=== PATIENT | female | born 1965 | race Caucasian/White ===

== ENCOUNTER 2016-10-06 09:31 | Day surgery (SDC) | payer MEDICAID ==
[2016-10-05 08:47] VITALS: BMI 36.6
[~2016-10-06 09:31] MED LIST: LACTATED RINGERS 1,000 ML IV SCH
[2016-10-06 10:52] VITALS: RESP 16; TEMP 98.2
[2016-10-06] MEDS ORDERED: LIDOCAINE 1% 20 ML VIAL (10MG/ML) FOR IV START INTRADERMA ONE (11:08)
[2016-10-06] MEDS ORDERED: PROPOFOL 10 MG/ML 20 ML VIAL IV ONE (11:31)
--- NOTE | 2016-10-06 11:45 | P.PCN ---
Date of Procedure: 10/06/16 Procedure(s) Performed: BRIEF HISTORY: Patient is a 50-year-old pleasant white female scheduled for an elective colonoscopy as a part of screening for colorectal neoplasia. PROCEDURE PERFORMED: Colonoscopy. PREOPERATIVE DIAGNOSIS: Screening for colon cancer. IV sedation per Anesthesia. PROCEDURE: After informed consent was obtained, the patient, was brought into the endoscopy unit. IV sedation was administered by Anesthesia under continuous monitoring. Digital rectal examination was normal. Initially the Olympus CF- 160 flexible video colonoscope was then inserted in the rectum, gradually advanced into the cecum without any difficulty. Careful examination was performed as the scope was gradually being withdrawn. Ileocecal valve and the appendiceal orifice were visualized and appeared normal. Prep was excellent. Mucosa of the cecum, ascending colon, transverse colon, descending colon, sigmoid colon, and rectum appeared normal. Retroflexion was performed in the rectum and no lesions were seen. The patient tolerated the procedure well. IMPRESSION: Normal-appearing colon from rectum to cecum with no evidence of colorectal neoplasia. RECOMMENDATIONS: Findings of this examination were discussed with the patient as well as her family. She was advised to have a repeat screening colonoscopy in 10 years.
[2016-10-06 12:19] VITALS: BP 136/85; PULSE 76
== END 2016-10-06 12:31 | disposition home or self-care (01) ==
LOC: ORWHC2ENDO 09:31
PROVIDERS: ATTEND Internal Medicine Gastroenterology
DX: Z12.11 Encounter for screening for malignant neoplasm of colon (principal); K21.9 Gastro-esophageal reflux disease without esophagitis; Z79.899 Other long term (current) drug therapy
CPT/HCPCS: 81025; J2704; G0121

== ENCOUNTER → 2016-10-12 | Outpatient (CLI) | payer MEDICAID ==
--- NOTE | 2016-10-12 13:49 | ECHOS ---
DATE OF SERVICE: 10/12/2016 AGE: 50Y SEX: F HT: 62" WT: 220 lbs. Protocol Cristopher: X Others: Stress Echo Stage: 3 Dur. of Exercise: 7:00 *Heart Rate Blood Pressure *Rest: 92 Rest: 130/79 * *Max. Achieved: 153 Maximum BP: 196/57 85% PMHR: 145 100% PMHR: 170 *METS: 8.1 INDICATIONS: Abnormal EKG. MEDICATIONS: Prilosec. Baseline EKG revealed a normal sinus rhythm without significant ST-T changes. Patient walked on standard Cristopher protocol for 7 minutes, achieved a maximum heart rate of 153 beats per minute, which is was well above 85% of predicted maximum. She developed some fatigue and shortness of breath, but did not have any angina or arrhythmia. EKG did not reveal any ST segment changes to indicate ischemia. By EKG criteria, this is a negative stress test with fair exercise capacity. Baseline echo images revealed normal wall motion and wall thickening of all segments. At peak exercise,. there was good augmentation of left ventricular wall motion and wall thickening of all segments suggesting that there is no evidence of any stress-induced ischemia on this study. FINAL IMPRESSION: 1. Fair exercise capacity with a negative stress test by EKG criteria. 2. Negative stress echocardiogram.
== END | disposition home or self-care (01) ==
LOC: RADNMMAIN 08:57
PROVIDERS: ATTEND Internal Medicine Geriatric Medicine
DX: R94.31 Abnormal electrocardiogram [ECG] [EKG] (principal)
CPT/HCPCS: 93017; 93350

== ENCOUNTER → 2016-11-04 | Outpatient (CLI) | payer MEDICAID ==
--- NOTE | 2016-11-09 08:35 | MM ---
Reason for exam: screening (asymptomatic). Last mammogram was performed 6 years and 1 month ago. History: Family history of breast cancer in paternal grandmother. Physical Findings: A clinical breast exam by your physician is recommended on an annual basis and results should be correlated with mammographic findings. MG 3D Screening Mammo W/Cad Bilateral CC and MLO view(s) were taken. Prior study comparison: October 12, 2010, bilateral digital screening mammo w/CAD. There are scattered fibroglandular densities. No significant changes when compared with prior studies. ASSESSMENT: Negative, BI-RAD 1 RECOMMENDATION: Routine screening mammogram of both breasts in 1 year.
== END | disposition home or self-care (01) ==
LOC: RADMAMWWP 09:23
PROVIDERS: ATTEND Internal Medicine Geriatric Medicine
DX: Z12.31 Encounter for screening mammogram for malignant neoplasm of breast (principal); E78.5 Hyperlipidemia, unspecified; K21.9 Gastro-esophageal reflux disease without esophagitis; M19.90 Unspecified osteoarthritis, unspecified site; R73.9 Hyperglycemia, unspecified; Z79.1 Long term (current) use of non-steroidal anti-inflammatories (NSAID)
CPT/HCPCS: 77063; G0202

== ENCOUNTER 2018-02-23 05:56 | Observation (INO) | payer MEDICAID ==
[2018-02-23 06:32] LABS: Basophils % (A) 0 %; Eosinophils # (A) 0.2 k/uL (0-0.7); Eosinophils % (A) 2 %; HGB 12.1 gm/dL (11.4-16.0); Lymphocytes # (A) 1.4 k/uL (1.0-4.8); Lymphocytes % (A) 19 %; MCH 26.4 pg (25.0-35.0); MCHC 31.8 g/dL (31.0-37.0); MCV 83.2 fL (80.0-100.0); Mean Platelet Volume 6.6; Monocytes # (A) 0.3 k/uL (0-1.0); Monocytes % (A) 4 %; Neutrophils # (A) 5.3 k/uL (1.3-7.7); Neutrophils % (A) 73 %; Platelet Count 299 k/uL (150-450); RBC 4.56 m/uL (3.80-5.40); RDW 13.9 % (11.5-15.5); WBC 7.3 k/uL (3.8-10.6)
[2018-02-23 06:37] LABS: Partial Thromboplastin Time 24.7 sec (22.0-30.0)
[2018-02-23 06:38] LABS: ALT 36 U/L (9-52); AST 23 U/L (14-36); Albumin 3.9 g/dL (3.5-5.0); Alkaline Phosphatase 57 U/L (38-126); Anion Gap 8 mmol/L; Blood Urea Nitrogen 12 mg/dL (7-17); Calcium 9.5 mg/dL (8.4-10.2); Carbon Dioxide 25 mmol/L (22-30); Chloride 104 mmol/L (98-107); Glucose 96 mg/dL (74-99); Magnesium 1.8 mg/dL (1.6-2.3); Potassium 4.6 mmol/L (3.5-5.1); Sodium 137 mmol/L (137-145); Total Bilirubin 0.3 mg/dL (0.2-1.3); Total Protein 6.7 g/dL (6.3-8.2)
--- NOTE | 2018-02-23 06:39 | ED ---
Chest Pain HPI - General Chief Complaint: Chest Pain Stated Complaint: chest pain Time Seen by Provider: 02/23/18 06:37 Source: patient Mode of arrival: ambulatory Limitations: no limitations - History of Present Illness MD Complaint: chest pain -: hour(s) Onset: during rest Pain Location: substernal Pain Radiation: back Severity: severe Quality: aching Consistency: constant Improves With: nothing Worsens With: nothing Anginal Symptoms: nausea Treatments Prior to Arrival: none - Related Data Home Medications Medication Instructions Recorded Confirmed Multivitamins, Thera [Multivitamin 1 tab PO DAILY 10/05/16 02/23/18 (formulary)] Omeprazole [PriLOSEC] 20 mg PO AC-BRKFST 10/05/16 02/23/18 Previous Rx's Medication Instructions Recorded Cyclobenzaprine [Flexeril] 10 mg PO TID #14 tab 02/20/18 Ketorolac [Toradol] 10 mg PO Q6HR #20 tab 02/20/18 Allergies Allergy/AdvReac Type Severity Reaction Status Date / Time No Known Allergies Allergy Verified 02/23/18 07:17 Review of Systems ROS Statement: Those systems with pertinent positive or pertinent negative responses have been documented in the HPI. ROS Other: All systems not noted in ROS Statement are negative. Constitutional: Denies: fever, chills, weakness Respiratory: Denies: cough, dyspnea Cardiovascular: Reports: chest pain. Denies: palpitations, edema, syncope Gastrointestinal: Reports: nausea. Denies: abdominal pain, vomiting Genitourinary: Denies: dysuria, hematuria Musculoskeletal: Denies: back pain Skin: Denies: rash Neurological: Denies: headache, weakness, numbness EKG Findings - EKG Results: EKG: interpreted by DOMINGO WNL, sinus rhythm (Rate 84 bpm), normal axis, normal QRS, normal ST/T, no acute changes - NC, Pacemaker, Normal: Normal tracing: normal tracing Past Medical History Past Medical History: Chest Pain / Angina, GERD/Reflux History of Any Multi-Drug Resistant Organisms: None Reported Past Surgical History: No Surgical Hx Reported Past Psychological History: No Psychological Hx Reported Smoking Status: Never smoker Past Alcohol Use History: Occasional Past Drug Use History: None Reported - Past Family History Father Family Medical History: Cancer Additional Family Medical History / Comment(s): Father had prostrate cancer that metastasized to the bone. He from this at the age of 71yrs. Mother Additional Family Medical History / Comment(s): Mother has a pacemaker. General Exam Limitations: no limitations General appearance: alert, in no apparent distress Head exam: Present: atraumatic, normocephalic Eye exam: Present: normal appearance. Absent: scleral icterus, conjunctival injection ENT exam: Present: normal oropharynx Neck exam: Present: normal inspection, full ROM Respiratory exam: Present: normal lung sounds bilaterally. Absent: respiratory distress, wheezes, rales, rhonchi, stridor, chest wall tenderness Cardiovascular Exam: Present: regular rate, normal rhythm, normal heart sounds. Absent: systolic murmur, diastolic murmur, rubs, gallop GI/Abdominal exam: Present: soft. Absent: distended, tenderness, guarding, rebound, rigid Extremities exam: Present: normal inspection, normal capillary refill. Absent: pedal edema, calf tenderness Back exam: Present: normal inspection. Absent: CVA tenderness (R), CVA tenderness (L) Neurological exam: Present: alert Skin exam: Present: warm, dry, intact, normal color. Absent: rash Course Vital Signs 02/23/18 02/23/18 02/23/18 05:59 07:05 08:35 Temperature 98.4 F 98.2 F Pulse Rate 90 80 90 Pulse Rate [ Right Pulse Oximetery] Respiratory 18 20 18 Rate Blood Pressure 158/88 138/83 164/85 Blood Pressure [Right Arm] O2 Sat by Pulse 99 97 98 Oximetry 02/23/18 08:50 Temperature 98.7 F Pulse Rate Pulse Rate [ 95 Right Pulse Oximetery] Respiratory 18 Rate Blood Pressure Blood Pressure 145/86 [Right Arm] O2 Sat by Pulse 98 Oximetry Chest Pain MDM - MDM This patient is a 52-year-old woman who presents to be evaluated for substernal chest pain. The pain does have a few typical features but on the other any patient does have normal ECG. This is her second visit in 3 days. The initial workup is negative, but will admit to have serial cardiac enzymes, telemetry, and cardiology evaluation. Disposition Clinical Impression: Chest pain Disposition: ADMITTED IP TO THIS HOSP Condition: Good Is patient prescribed a controlled substance at d/c from ED?: No
[2018-02-23 06:48] LABS: Creatine Kinase 82 U/L (30-135)
[2018-02-23] MEDS ORDERED: ONDANSETRON 4 MG/2 ML VIAL IVP STA (06:48)
[2018-02-23] MEDS ORDERED: MORPHINE SULFATE 4 MG/ML SYRINGE IV STA (06:48)
--- NOTE | 2018-02-23 06:54 | XR ---
EXAMINATION TYPE: XR chest 1V portable DATE OF EXAM: 02/23/2018 COMPARISON: Chest x-ray from 3 days ago HISTORY: Sharp shooting pain in chest for 6 hours. TECHNIQUE: Single AP portable frontal upright view of the chest is obtained. FINDINGS: Overlying EKG leads are seen. There is no focal air space opacity, pleural effusion, or pn eumothorax seen. The cardiac silhouette size is stable and within normal limits with slightly ectati c thoracic aorta redemonstrated. The osseous structures are intact. IMPRESSION: No acute cardiopulmonary process. No significant change from prior.
[2018-02-23 07:01] LABS: Creatine Kinase MB 0.8 ng/mL (0.0-2.4); Troponin I <0.012 ng/mL (0.000-0.034)
[2018-02-23] MEDS ORDERED: NITROGLYCERIN SL TABS 0.4 MG TAB SUBLINGUAL PRN (07:28)
[2018-02-23] MEDS ORDERED: PANTOPRAZOLE 40 MG TABLET PO SCH (07:30)
[2018-02-23] MEDS ORDERED: SODIUM CHLORIDE 0.9% 1,000 ML IV SCH ×2 (07:30→14:00)
[2018-02-23 08:38] VITALS: RESP 18
[2018-02-23 08:59] VITALS: TEMP 98.7
[2018-02-23 11:40] VITALS: BP 116/68; PULSE 83
[2018-02-23] MEDS ORDERED: MULTIVITAMINS, THERA 1 EACH TAB PO SCH (12:00)
--- NOTE | 2018-02-23 12:14 | P.CRDCN ---
History of Present Illness History of present illness: This is a pleasant 52-year-old female past medical history significant for gastroesophageal reflux disease. She denies history of coronary artery disease, hypertension or diabetes mellitus. She states her total cholesterol is usually controlled but she does have elevated triglycerides. We have been asked to see her in consultation for chest pain. She describes a feeling like a band around her upper body squeezing. The pain starts in the mid- sternal region and radiates sharply through to the back. No specific aggravating or alleviating factors noted. She feels nauseated and diaphoretic when the pain is at its peak. She denies shortness of breath, dizziness, vomiting, palpitations or cough. She has felt this pain previously in the past and went to ED for evaluation. They did an EKG and gave her toradol which seemed to subside the pain. She was given a prescription for toradol an flexeril. The pain returned last night and neither toradol or flexeril worked to relieve the pain this time. She continues to have mild discomfort at the time of my exam. EKG sinus mechanism with no acute ST or T-wave abnormalities. Chest xray negative for an acute cardiopulmonary process. Laboratory data reviewed, cardiac enzymes negative x1. Current daily medications include prilosec. Most recent stress test performed 10/2016 negative for stress induced cardiac ischemia. Review of Systems At the time of my exam: CONSTITUTIONAL: Denies fever. Denies chills. EYES: Denies blurred vision. Denies vision changes. Denies eye pain. EARS, NOSE, MOUTH & THROAT: Denies headache. Denies sore throat. Denies ear pain. CARDIOVASCULAR: Complains of chest pain. Denies shortness of breath. Denies orthopnea. Denies PND. Denies palpitations. RESPIRATORY: Denies cough. GASTROINTESTINAL: Denies abdominal pain. Denies diarrhea. Denies constipation. Denies nausea. Denies vomiting. MUSCULOSKELETAL: Denies myalgias. INTEGUMENTARY: Denies pruitis. Denies rash. NEUROLOGIC: Denies numbness. Denies tingling. Denies weakness. PSYCHIATRIC: Denies anxiety. Denies depression. ENDOCRINE: Denies fatigue. Denies weight change. Denies polydipsia. Denies polyurina. GENITOURINARY: Denies burning, hematuria or urgency with micturation. HEMATOLOGIC: Denies history of anemia. Denies bleeding. Past Medical History Past Medical History: Chest Pain / Angina, GERD/Reflux Additional Past Medical History / Comment(s): DDD, occasional low back pain. History of Any Multi-Drug Resistant Organisms: None Reported Past Surgical History: No Surgical Hx Reported Additional Past Surgical History / Comment(s): 2017 colonoscopy Additional Past Anesthesia/Blood Transfusion Reaction / Comment(s): Pt has never received general/spinal anesthesia. Pt has never received blood. Smoking Status: Never smoker - Past Family History Father Family Medical History: Cancer Additional Family Medical History / Comment(s): Father had prostrate cancer that metastasized to the bone. He from this at the age of 71yrs. Mother Additional Family Medical History / Comment(s): Mother has a pacemaker. Medications and Allergies Home Medications Medication Instructions Recorded Confirmed Type Multivitamins, Thera [Multivitamin 1 tab PO DAILY 10/05/16 02/23/18 History (formulary)] Omeprazole [PriLOSEC] 20 mg PO AC-BRKFST 10/05/16 02/23/18 History Cyclobenzaprine [Flexeril] 10 mg PO TID #14 tab 02/20/18 02/23/18 Rx Ketorolac [Toradol] 10 mg PO Q6HR #20 tab 02/20/18 02/23/18 Rx Allergies Allergy/AdvReac Type Severity Reaction Status Date / Time No Known Allergies Allergy Verified 02/23/18 07:17 Physical Exam Vitals: Vital Signs Temp Pulse Pulse Resp BP BP Pulse Ox 02/23/18 08:50 98.7 F 95 18 145/86 98 02/23/18 08:35 98.2 F 90 18 164/85 98 02/23/18 07:05 80 20 138/83 97 02/23/18 05:59 98.4 F 90 18 158/88 99 Intake and Output 02/22/18 02/23/18 02/23/18 22:59 06:59 14:59 Other: Weight 104.326 kg Blood pressure 116/68 heart rate 83 afebrile maintaining oxygen saturation on room air GENERAL: This is a 52-year-old female in no apparent distress at the time of my examination. Obese. HEENT: Head is atraumatic, normocephalic. Pupils are equal, round. Sclerae anicteric. Conjunctivae are clear. Mucous membranes of the mouth are moist. Neck is supple. There is no jugular venous distention. No carotid bruit is heard. LUNGS: Clear to auscultation no wheezes, rales or rhonchi. No chest wall tenderness is noted on palpation or with deep breathing. HEART: Regular rate and rhythm with faint systolic murmur at the base, no rubs or gallops. S1 and S2 heard. ABDOMEN: Soft, nontender. Bowel sounds are heard. No organomegaly noted. EXTREMITIES: No evidence of peripheral edema and no calf tenderness noted. VASCULAR: Radial and dorsalis pedis pulses palpated, no evidence of clubbing. NEUROLOGIC: Patient is awake, alert and oriented x3. Results 02/23/18 06:17 02/23/18 06:17 Cardiac Enzymes 02/23/18 02/23/18 Range/Units 06:17 06:17 AST 23 (14-36) U/L CK-MB (CK-2) 0.8 (0.0-2.4) ng/mL Troponin I <0.012 (0.000-0.034) ng/mL Coagulation 02/23/18 Range/Units 06:17 PT 10.0 (9.0-12.0) sec APTT 24.7 (22.0-30.0) sec CBC 02/23/18 Range/Units 06:17 WBC 7.3 (3.8-10.6) k/uL RBC 4.56 (3.80-5.40) m/uL Hgb 12.1 (11.4-16.0) gm/dL Hct 38.0 (34.0-46.0) % Plt Count 299 (150-450) k/uL Comprehensive Metabolic Panel 02/23/18 Range/Units 06:17 Sodium 137 (137-145) mmol/L Potassium 4.6 (3.5-5.1) mmol/L Chloride 104 (98-107) mmol/L Carbon Dioxide 25 (22-30) mmol/L BUN 12 (7-17) mg/dL Creatinine 0.73 (0.52-1.04) mg/dL Glucose 96 (74-99) mg/dL Calcium 9.5 (8.4-10.2) mg/dL AST 23 (14-36) U/L ALT 36 (9-52) U/L Alkaline Phosphatase 57 (38-126) U/L Total Protein 6.7 (6.3-8.2) g/dL Albumin 3.9 (3.5-5.0) g/dL Current Medications Generic Name Dose Route Start Last Admin Trade Name Freq PRN Reason Stop Dose Admin Aspirin 325 mg 02/24/18 09:00 Aspirin PO DAILY [facility] Sodium Chloride 1,000 mls @ 20 mls/hr 02/23/18 07:30 Saline 0.9% IV .Q24H [facility] Multivitamins 1 each 02/23/18 12:00 Theragran PO DAILY@1200 GRABIEL Nitroglycerin 0.4 mg 02/23/18 07:28 Nitrostat SUBLINGUAL Q5M PRN Chest Pain Pantoprazole Sodium 40 mg 02/23/18 07:30 Protonix PO AC-BRKFST GRABIEL Intake and Output 02/22/18 02/23/18 02/23/18 22:59 06:59 14:59 Other: Weight 104.326 kg 02/23/18 06:17 02/23/18 06:17 Assessment and Plan Assessment: ASSESSMENT Chest pain, atypical. Gastroesophageal reflux disease Obestiy, BMI 42.1 PLAN Obtain troponin STAT, if negative will proceed with stress echocardiogram to assess for stress induced cardiac ischemia. Obtain ultrasound of the gallbladder. Obtain 2D echocardiogram and doppler study to assess cardiac structure and function. If normal stress test, she is stable from a cardiac perspective. Lifestyle modifications recommended. Thank you kindly for this consultation. Nurse Practitioner note has been reviewed, I agree with a documented findings and plan of care. Patient was seen and examined.
--- NOTE | 2018-02-23 12:30 | US ---
EXAMINATION TYPE: US gallbladder DATE OF EXAM: 02/23/2018 COMPARISON: NONE CLINICAL HISTORY: epigastric pain. EXAM MEASUREMENTS: Liver Length: 16.7 cm Gallbladder Wall: 0.5 cm CBD: not positively identified, possibly obscured by stones Right Kidney: 11.3 x 3.8 x 4.4 cm Large body habitus Pancreas: wnl Liver: Increased attenuation, decreased visualization of vessels suggestive of fatty infiltrate, upp er limits of normal in size Gallbladder: multiple stones, there appears to be a stone in the neck of the gallbladder, thickened wall Evidence for sonographic Mansfield's sign: No CBD: not positively identified, possibly obscured by stones Right Kidney: wnl and cortical measured differentiation is maintained. There is no ascites. IMPRESSION: Cholelithiasis, correlate for possible cholecystitis. Probable hepatic steatosis.
[2018-02-23] MEDS ORDERED: ONDANSETRON 4 MG/2 ML VIAL IVP PRN (13:52)
--- NOTE | 2018-02-23 13:59 | P.HPIM ---
History of Present Illness H&P Date: 02/23/18 Chief Complaint: Epigastric This is a 52-year-old female patient of Dr. Pandya with past medical history of gastroesophageal reflux disease, degenerative disc disease and chronic low back pain. 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 She was given Toradol without any improvement. Last night while she was sleeping she had pain that woke her up. She states it was in the center of her chest under her ribs and goes around to the back. She states she had sweats and nausea with it. She denies any shortness of breath, syncope episode, palpitations. She denies any recent shortness of breath with activity. She does have history of GERD and takes Prilosec every morning. She denies any burping or reflux. She states she has never had endoscopy done before she denies any blood or tarry stools. She denies any weight loss. She has had some recent weight gain. She states the pain went around to her back bilaterally and also into the flank areas when it was significantly bad. She was given morphine in the emergency center and the pain is now a 2. Zofran improved nausea. She does give history of having a stress test done about one and half years ago she had abnormal EKG but states this was normal. The patient was afebrile, blood pressure was slightly high, troponins of been negative on 2 draws. Electrolytes, kidney function and liver function tests all within normal limits, d-dimer 0.35. CBC is normal hemoglobin and white count. Chest x-ray showed no acute cardio pulmonary process. Patient was pleasant observation unit and cardiology consult requested. She underwent ultrasound that revealed cholelithiasis, correlate for possible cholecystitis. Probable hepatic steatosis. Patient underwent stress test that was negative. Review of Systems All systems: negative Constitutional: Reports sweats, Reports weight gain, Denies anorexia, Denies chills, Denies fatigue, Denies fever, Denies lethargy, Denies malaise, Denies poor appetite, Denies weakness, Denies weight loss Eyes: denies blurred vision, denies pain Ears, nose, mouth and throat: Denies headache, Denies sore throat, Denies vertigo Cardiovascular: Reports chest pain, Denies decreased exercise tolerance, Denies dyspnea on exertion, Denies edema, Denies leg edema, Denies lightheadedness, Denies palpitations, Denies shortness of breath, Denies syncope Respiratory: Denies cough, Denies cough with sputum, Denies dyspnea, Denies excessive sputum, Denies hemoptysis, Denies home oxygen, Denies wheezing Gastrointestinal: Reports nausea, Denies abdominal pain, Denies diarrhea, Denies heartburn, Denies loss of appetite, Denies melena, Denies vomiting Genitourinary: Denies dysuria, Denies hematuria Musculoskeletal: Denies myalgias Integumentary: Denies pruritus, Denies rash Neurological: Denies numbness, Denies weakness Psychiatric: Denies anxiety, Denies depression Endocrine: Denies fatigue, Denies weight change Past Medical History Past Medical History: Chest Pain / Angina, GERD/Reflux Additional Past Medical History / Comment(s): DDD, occasional low back pain. History of Any Multi-Drug Resistant Organisms: None Reported Past Surgical History: No Surgical Hx Reported Additional Past Surgical History / Comment(s): 2017 colonoscopy Additional Past Anesthesia/Blood Transfusion Reaction / Comment(s): Pt has never received general/spinal anesthesia. Pt has never received blood. Past Psychological History: No Psychological Hx Reported Smoking Status: Never smoker Past Alcohol Use History: Occasional Additional Past Alcohol Use History / Comment(s): Patient lives at home with her and adult daughter. 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 She is independent. She has been a lifelong nonsmoker, no illicit drug use. Past Drug Use History: None Reported - Past Family History Father Family Medical History: Cancer Additional Family Medical History / Comment(s): Father had prostrate cancer that metastasized to the bone. He from this at the age of 71yrs. Mother Additional Family Medical History / Comment(s): Mother has arrhythmia and may need a pacemaker. Brother(s) Additional Family Medical History / Comment(s): Patient has 1 brother with no major medical problems. No coronary artery disease or diabetes. Patient has 2 children ages 20 and 17 with no major medical problems. Medications and Allergies Home Medications Medication Instructions Recorded Confirmed Type Multivitamins, Thera [Multivitamin 1 tab PO DAILY 10/05/16 02/23/18 History (formulary)] Omeprazole [PriLOSEC] 20 mg PO AC-BRKFST 10/05/16 02/23/18 History Cyclobenzaprine [Flexeril] 10 mg PO TID #14 tab 02/20/18 02/23/18 Rx Ketorolac [Toradol] 10 mg PO Q6HR #20 tab 02/20/18 02/23/18 Rx Allergies Allergy/AdvReac Type Severity Reaction Status Date / Time No Known Allergies Allergy Verified 02/23/18 07:17 Physical Exam Vitals: Vital Signs Temp Pulse Pulse Resp BP BP Pulse Ox 02/23/18 09:17 98 02/23/18 09:13 90 02/23/18 08:50 98.7 F 95 18 145/86 98 02/23/18 08:35 98.2 F 90 18 164/85 98 02/23/18 07:05 80 20 138/83 97 02/23/18 05:59 98.4 F 90 18 158/88 99 Intake and Output 02/22/18 02/23/18 02/23/18 22:59 06:59 14:59 Other: Voiding Method Toilet Weight 104.326 kg Gen: This is a 52-year-old female patient. She is on bed and appears to be comfortable and in no acute distress. HEENT: Head is atraumatic, normocephalic. Pupils equal, round. Sclerae is anicteric. NECK: Supple. No JVD. No lymphadenopathy. No thyromegaly. LUNGS: Clear to auscultation. No wheezes or rhonchi. No intercostal retractions. HEART: Regular rate and rhythm. No murmur. ABDOMEN: Soft. Bowel sounds are present. No masses. Mild tenderness to the epigastric area. EXTREMITIES: No pedal edema. No calf tenderness. Dorsalis pedis +2 bilaterally. NEUROLOGICAL: Patient is awake, alert and oriented x3. Cranial nerves 2 through 12 are grossly intact. Results CBC & Chem 7: 02/23/18 06:17 02/23/18 06:17 Thrombosis Risk Factor Assmnt - DVT/VTE Prophylaxis DVT/VTE Prophylaxis: Pharmacologic Prophylaxis ordered - Choose All That Apply Any of the Below Risk Factors Present?: Yes Each Factor Represents 1 point: Age 41-60 years, Obesity (BMI >25) Other Risk Factors: No Other congenital or acquired thrombophilia - If yes, enter type in comment: No Thrombosis Risk Factor Assessment Total Risk Factor Score: 2 Thrombosis Risk Factor Assessment Level: Low Risk Assessment and Plan Plan: 1. Chest pain secondary to cholecystitis. Patient started on Zosyn, consult with Dr. Cobian, nothing by mouth status. Continue morphine as needed for pain and Zofran for nausea, IV fluids at 100 mL per hour. 2. History of GERD. Continue Protonix 40 mg with breakfast daily 3. DVT prophylaxis. SCDs and ZHOU hose. 4. Pulmonary prophylaxis. Incentive spirometry. Patient will be admitted to the hospital for a minimum of 2 night stay. Discharge plan: Return home Impression and plan of care have been directed as dictated by the signing physician. Latosha Oden nurse practitioner acting as scribe for signing physician.
[2018-02-23] MEDS ORDERED: PIPERACILLIN-TAZOBACTAM 3.375 GM in DEXTROSE/WATER 1 50ML.BAG IVPB SCH (15:00)
--- NOTE | 2018-02-23 15:18 | P.GSCN ---
History of Present Illness Consult date: 02/23/18 History of present illness: 52-year-old female presented to the emergency department with complained of chest pain and upper epigastric pain. This started in the middle of the night and brought her to the emergency department early in the morning. She states that her dinner the night before was a bolus frosted many weeks. She states that she has had attacks like this in the past about 4 times. She states that these episodes were very spread out. She denies any nausea or vomiting. She denies any loss in appetite. She states that after the episode of pain, that it has resolved and currently there is no pain. She denies any change in bowel function. She has had a cardiology workup for chest pain as well. Review of Systems All systems: negative Past Medical History Past Medical History: Chest Pain / Angina, GERD/Reflux Additional Past Medical History / Comment(s): DDD, occasional low back pain. History of Any Multi-Drug Resistant Organisms: None Reported Past Surgical History: No Surgical Hx Reported Additional Past Surgical History / Comment(s): 2017 colonoscopy Additional Past Anesthesia/Blood Transfusion Reaction / Comm: Pt has never received general/spinal anesthesia. Pt has never received blood. Past Psychological History: No Psychological Hx Reported Smoking Status: Never smoker Past Alcohol Use History: Occasional Additional Past Alcohol Use History / Comment(s): Patient lives at home with her and adult daughter. 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 She is independent. She has been a lifelong nonsmoker, no illicit drug use. Past Drug Use History: None Reported - Past Family History Father Family Medical History: Cancer Additional Family Medical History / Comment(s): Father had prostrate cancer that metastasized to the bone. He from this at the age of 71yrs. Mother Additional Family Medical History / Comment(s): Mother has arrhythmia and may need a pacemaker. Brother(s) Additional Family Medical History / Comment(s): Patient has 1 brother with no major medical problems. No coronary artery disease or diabetes. Patient has 2 children ages 20 and 17 with no major medical problems. Medications and Allergies Home Medications Medication Instructions Recorded Confirmed Type Multivitamins, Thera [Multivitamin 1 tab PO DAILY 10/05/16 02/23/18 History (formulary)] Omeprazole [PriLOSEC] 20 mg PO AC-BRKFST 10/05/16 02/23/18 History Cyclobenzaprine [Flexeril] 10 mg PO TID #14 tab 02/20/18 02/23/18 Rx Ketorolac [Toradol] 10 mg PO Q6HR #20 tab 02/20/18 02/23/18 Rx Allergies Allergy/AdvReac Type Severity Reaction Status Date / Time No Known Allergies Allergy Verified 02/23/18 07:17 Surgical - Exam Osteopathic Statement: *. No significant issues noted on an osteopathic structural exam other than those noted in the History and Physical/Consult. Vital Signs Temp Pulse Resp BP Pulse Ox 98.4 F 90 18 158/88 99 02/23/18 05:59 02/23/18 05:59 02/23/18 05:59 02/23/18 05:59 02/23/18 05:59 - General well nourished, no distress - Eyes normal ocular movement - Respiratory No difficulty with respiration - Abdomen Soft, nontender, nondistended, no rebound, no guarding - Neurologic normal coordination, normal sensation - Psychiatric oriented to time, oriented to person, oriented to place Results - Labs 02/23/18 06:17 02/23/18 06:17 Diabetes panel 02/23/18 Range/Units 06:17 Sodium 137 (137-145) mmol/L Potassium 4.6 (3.5-5.1) mmol/L Chloride 104 (98-107) mmol/L Carbon Dioxide 25 (22-30) mmol/L BUN 12 (7-17) mg/dL Creatinine 0.73 (0.52-1.04) mg/dL Glucose 96 (74-99) mg/dL Calcium 9.5 (8.4-10.2) mg/dL AST 23 (14-36) U/L ALT 36 (9-52) U/L Alkaline Phosphatase 57 (38-126) U/L Total Protein 6.7 (6.3-8.2) g/dL Albumin 3.9 (3.5-5.0) g/dL Calcium panel 02/23/18 Range/Units 06:17 Calcium 9.5 (8.4-10.2) mg/dL Albumin 3.9 (3.5-5.0) g/dL Pituitary panel 02/23/18 Range/Units 06:17 Sodium 137 (137-145) mmol/L Potassium 4.6 (3.5-5.1) mmol/L Chloride 104 (98-107) mmol/L Carbon Dioxide 25 (22-30) mmol/L BUN 12 (7-17) mg/dL Creatinine 0.73 (0.52-1.04) mg/dL Glucose 96 (74-99) mg/dL Calcium 9.5 (8.4-10.2) mg/dL Adrenal panel 02/23/18 Range/Units 06:17 Sodium 137 (137-145) mmol/L Potassium 4.6 (3.5-5.1) mmol/L Chloride 104 (98-107) mmol/L Carbon Dioxide 25 (22-30) mmol/L BUN 12 (7-17) mg/dL Creatinine 0.73 (0.52-1.04) mg/dL Glucose 96 (74-99) mg/dL Calcium 9.5 (8.4-10.2) mg/dL Total Bilirubin 0.3 (0.2-1.3) mg/dL AST 23 (14-36) U/L ALT 36 (9-52) U/L Alkaline Phosphatase 57 (38-126) U/L Total Protein 6.7 (6.3-8.2) g/dL Albumin 3.9 (3.5-5.0) g/dL - Imaging US - abdomen: report reviewed, image reviewed (Cholelithiasis) Assessment and Plan Plan: 52-year-old female with likely symptomatic cholelithiasis - Currently pain is resolved - Due to resolution of pain and no evidence of leukocytosis or elevated transaminases or elevated bilirubins, we'll plan for elective outpatient cholecystectomy, I did discuss this in depth with the patient and the patient was agreeable. - Stable for discharge with follow-up per surgical perspective
[2018-02-24] MEDS ORDERED: ASPIRIN 325 MG TAB PO SCH (09:00)
--- NOTE | 2018-02-24 10:47 | ECHOF ---
Referral Reason:cp MEASUREMENTS -------- HEIGHT: 157.5 cm WEIGHT: 104.3 kg BP: RVIDd: 2.5 cm (< 3.3) IVSd: 1.1 cm (0.6 - 1.1) LVIDd: 4.5 cm (3.9 - 5.3) LVPWd: 0.9 cm (0.6 - 1.1) IVSs: 1.3 cm LVIDs: 2.9 cm LVPWs: 1.7 cm LA Diam: 2.8 cm (2.7 - 3.8) Ao Diam: 2.7 cm (2.0 - 3.7) AV Cusp: 1.6 cm (1.5 - 2.6) LA Diam: 3.2 cm (2.7 - 3.8) MV EXCURSION: 15.271 mm (> 18.000) MV EF SLOPE: 92 mm/s (70 - 150) EPSS: 0.2 cm MV E Satnam: 0.76 m/s MV DecT: 223 ms MV A Satnam: 0.87 m/s MV E/A Ratio: 0.88 AR PHT: 620 ms RAP: 5.00 mmHg RVSP: 23.19 mmHg FINDINGS -------- Sinus rhythm. This was a techncally difficult study with suboptimal views, , Lumason utilized for enhancement of im ages. LV size, wall thickness and systolic function are normal, with an EF greater than 55%. The left shala tricular size is normal. The right ventricle is normal in size. The left atrial size is normal. The right atrial size is normal. 5.0mg OF Lumason UTLIZED: 2 OR MORE WALL SEGMENTS NOT VISUALIZED. The aortic valve is trileaflet, and appears structurally normal. No aortic stenosis or regurgitation. Mild mitral regurgitation is present. Mild tricuspid regurgitation present. There is no evidence of pulmonary hypertension. The right v entricular systolic pressure, as measured by Doppler, is 23.19mmHg. There is no pulmonic regurgitation present. The aortic root size is normal. There is no pericardial effusion. CONCLUSIONS -------- 1. This was a techncally difficult study with suboptimal views, , Lumason utilized for enhancement of images. 2. LV size, wall thickness and systolic function are normal, with an EF greater than 55%. 3. The left ventricular size is normal. 4. The right ventricle is normal in size. 5. The left atrial size is normal. 6. The right atrial size is normal. 7. 5.0mg OF Lumason UTLIZED: 2 OR MORE WALL SEGMENTS NOT VISUALIZED. 8. The aortic valve is trileaflet, and appears structurally normal. No aortic stenosis or regurgitati on. 9. Mild mitral regurgitation is present. 10. Mild tricuspid regurgitation present. 11. There is no evidence of pulmonary hypertension. 12. The right ventricular systolic pressure, as measured by Doppler, is 23.19mmHg. 13. There is no pulmonic regurgitation present. 14. The aortic root size is normal. 15. There is no pericardial effusion. [employer]: Risa Philip RDCS
--- NOTE | 2018-02-24 14:24 | ECHOS ---
STRESS ECHOCARDIOGRAM INDICATIONS Chest pain. MEDICATIONS Omeprazole, tramadol. BASELINE HEART RATE 83 BASELINE BLOOD PRESSURE 176/49 MAXIMUM HEART RATE 165 MAXIMUM BLOOD PRESSURE 200/41 85% MPHR 143 100% MPHR 163 METs 7.9 MAXIMUM STAGE REACHED III TOTAL EXERCISE TIME 7:00 CLINICAL INFORMATION Patient was exercised for a total period of 7 minutes. Peak heart rate of 165 was achieved. Maximum blood pressure of 182/70 mmHg. Patient did not complain of any chest pain during the test. Resting EKG shows normal sinus rhythm with normal AK interval and QRS duration and normal ST-T waves. No ST segment depression suggestive of ischemia is noted. FINAL IMPRESSION 1. This stress echocardiographic study is negative for stress induced ischemia. 2. EKG portion of the stress test is not suggestive of ischemia. Patient exercise tolerance is average. MMODL / IJN: [id number] /
== END 2018-02-23 15:30 | disposition home or self-care (01) ==
LOC: EC 05:56 → 3OBS 07:28
PROVIDERS: ADMIT Internal Medicine Geriatric Medicine; ATTEND Internal Medicine Geriatric Medicine
DX: K80.10 Calculus of gallbladder with chronic cholecystitis without obstruction (principal); K21.9 Gastro-esophageal reflux disease without esophagitis; Z68.41 Body mass index [BMI] 40.0-44.9, adult; E66.9 Obesity, unspecified; M54.5 Low back pain; G89.29 Other chronic pain; Z79.899 Other long term (current) drug therapy; Z80.42 Family history of malignant neoplasm of prostate; Z82.49 Family history of ischemic heart disease and other diseases of the circulatory system
CPT/HCPCS: 99285 ×2; 96374 ×2; 96375 ×2; 36415; 93005; 93306; 93351; 85379; 80053; 82550; 82553; 83735; 84484; 85025; 85610; 85730; 71045; 76705; G0378; J2270; J2405

== ENCOUNTER 2018-03-02 13:07 | Day surgery (SDC) | payer MEDICAID ==
[2018-02-28 16:27] VITALS: BMI 41.1
[~2018-03-02 13:07] MED LIST changes: +DEXAMETHASONE SOD PHOSPHATE 10 MG/ML 1 ML VIAL IV ONE; +HEPARIN SODIUM,PORCINE 5,000 UNIT/ML 1 ML VIAL SQ ONE; -LACTATED RINGERS 1,000 ML IV SCH; +LIDOCAINE 1% 20 ML VIAL (10MG/ML) FOR IV START INTRADERMA PRN; +MIDAZOLAM 2 MG/2 ML VIAL IV PRN; +ONDANSETRON 4 MG/2 ML VIAL IVP ONE; +ceFAZolin IN SWFI 2 GM/20 ML SYRINGE IVP ONE
[2018-03-02] MEDS: LACTATED RINGERS 1,000 ML IV SCH ×2 (13:28→17:30)
[2018-03-02] MEDS ORDERED: NEOSTIGMINE 1 MG/ML 10 ML VIAL ONE (13:48)
[2018-03-02] MEDS ORDERED: MIDAZOLAM 2 MG/2 ML VIAL ONE (13:48)
[2018-03-02] MEDS ORDERED: fentaNYL (PF) 50 MCG/ML 2 ML AMP ONE (13:48)
[2018-03-02] MEDS ORDERED: ROCURONIUM BROMIDE 10 MG/ML 10 ML VIAL IV ONE (13:48)
[2018-03-02] MEDS ORDERED: GLYCOPYRROLATE 0.2 MG/ML 2 ML VIAL ONE (13:48)
[2018-03-02] MEDS ORDERED: PROPOFOL 10 MG/ML 20 ML VIAL IV ONE (13:48)
[2018-03-02] MEDS ORDERED: LIDOCAINE 1% INJ 10MG/ML (20 ML MDV) ONE (13:48)
[2018-03-02] MEDS ORDERED: BUPIVACAIN-EPI 0.5%-1:200,000 30 ML VIAL SQ ONE (14:12)
[2018-03-02] MEDS ORDERED: LACTATED RINGERS 1,000 ML IV ONE (14:38)
--- NOTE | 2018-03-02 14:54 | P.OP ---
Date of Procedure: 03/02/18 Preoperative Diagnosis: Symptomatic cholelithiasis Postoperative Diagnosis: Symptomatic cholelithiasis Procedure(s) Performed: Laparoscopic cholecystectomy Anesthesia: LAUREN Surgeon: Keisha Cobian Pathology: other (Gallbladder) Condition: stable Disposition: same day Indications for Procedure: 52-year-old female with history of episodic right upper quadrant pain. On workup she was found to have cholelithiasis and was diagnosed with symptomatic cholelithiasis. Secondary to this, plan was made for laparoscopic cholecystectomy. The patient was excellent the risks, benefits and alternatives to the procedure and provided consent prior to attending the operating suite. Operative Findings: Cholelithiasis Edematous gallbladder Description of Procedure: The patient was brought into the operating suite and placed in supine position on the operating table. Sedation was provided by anesthesia and the patient underwent endotracheal intubation. The patient was then prepped and draped in regular sterile fashion. An incision was made just lateral to the umbilicus and the abdomen was entered under direct visualization using an Optiview Visiport. Pneumoperitoneum was then achieved. 3 additional 5 mm ports were placed. One was placed in the subxiphoid region and 2 were placed in the right upper quadrant. The gallbladder was then grasped and retracted and dissection was made to skeletonize both the cystic duct and cystic artery. The critical view was maintained. 2 clips were placed proximally on the cystic duct and one was placed distally and the cystic duct was ligated between the sites. 2 clips were placed proximally on the cystic artery and one was placed distally and the cystic artery was ligated between these points. Hemostasis was noted to be maintained. The gallbladder was then removed from the gallbladder fossa on the liver bed using electrocautery. Hemostasis was maintained. The gallbladder was then removed from the abdomen using a Endo Catch bag. Irrigation was then used in the right upper quadrant. The umbilical incision site was closed with Miguel-Sam device and 0 Vicryl sutures in interrupted fashion. Pneumoperitoneum was then released and all ports removed from the abdomen. All skin incisions were then closed with 4-0 Vicryl subcuticular suture. The patient was awakened in the operating suite and taken to postanesthesia care unit in stable condition.
[2018-03-02] MEDS: HYDROmorphone 1 MG/ML 1 ML SYRINGE IVP ONE ×4 (14:56→15:41)
[2018-03-02] MEDS: fentaNYL (PF) 50 MCG/ML 2 ML AMP IV PRN ×2 (14:56→15:07)
[2018-03-02 15:02] VITALS: TEMP 97.4
[2018-03-02 15:08] VITALS: RESP 16
[2018-03-02] MEDS ORDERED: ONDANSETRON 4 MG/2 ML VIAL IVP ONE (15:56)
[2018-03-02] MEDS ORDERED: SCOPOLAMINE 1.5MG/72HR PATCH TRANSDERM ONE (17:30)
[2018-03-02] MEDS ORDERED: PROMETHAZINE INJ 25 MG/ML 1 ML VIAL IVPB ONE (17:55)
[2018-03-02 18:24] VITALS: BP 146/82; PULSE 97
== END 2018-03-02 19:20 | disposition home or self-care (01) ==
LOC: OR 13:07
PROVIDERS: ATTEND Surgery
DX: K80.10 Calculus of gallbladder with chronic cholecystitis without obstruction (principal); K21.9 Gastro-esophageal reflux disease without esophagitis; Z79.899 Other long term (current) drug therapy
CPT/HCPCS: 81025; 88304; 47562; J2250; J1644; J1100; J2550; J2710; J2405; J2001; J3010; J1170; J2704; J0690

== ENCOUNTER → 2021-03-13 | Outpatient (CLI) | payer MEDICAID, OTHER | END | disposition home or self-care (01) | LOC: LABWHC1 05:39 | PROVIDERS: ATTEND Emergency Medicine | DX: Z20.822 Contact with and (suspected) exposure to COVID-19 (principal) | CPT/HCPCS: 87635 ==

== ENCOUNTER → 2021-03-14 | Outpatient (CLI) | payer MEDICAID, OTHER | END | disposition home or self-care (01) | LOC: LABWHC1 07:05 | PROVIDERS: ATTEND Emergency Medicine | DX: Z20.822 Contact with and (suspected) exposure to COVID-19 (principal) | CPT/HCPCS: 87635 ==

== ENCOUNTER → 2021-04-19 | Outpatient (CLI) | payer MEDICAID ==
--- NOTE | 2021-04-19 02:46 | XR ---
EXAMINATION TYPE: XR finger LT DATE OF EXAM: 04/19/2021 COMPARISON: NONE HISTORY: Thumb pain. TECHNIQUE: 3 views FINDINGS: I see no fracture nor dislocation. Joint spaces are fairly normal. There are no erosions. T here is mild spurring at the IP joint of the thumb. IMPRESSION: Mild osteoarthritis. No fracture.
== END ==
LOC: RADXRMAIN 02:18
PROVIDERS: ATTEND Emergency Medicine
DX: M19.042 Primary osteoarthritis, left hand (principal)